=== PATIENT | female | born 1950 | race Caucasian/White ===

== ENCOUNTER → 2018-11-29 | Outpatient (CLI) | payer BC ==
[~2018-11-29] MED LIST: REGADENOSON 0.4 MG/5 ML DISP.SYRIN. IV ONE
--- NOTE | 2018-11-29 11:15 | PCVCIMAG ---
APPROVED REPORT Study performed: 11/29/2018 09:01:13 EXAM: Comprehensive 2D, Doppler, and color-flow Echocardiogram Patient Location: Echo lab Status: routine BSA: 2.02 HR: 56 bpmBP: 144/82 mmHg Rhythm: Bradycardia Risk Factors: Cardiac Risk Factors: HTN Indications Abnormal ECG Diabetes Fatigue 2D Dimensions IVSd: 15.18 (7-11mm) LVDd: 40.32 mm PWd: 13.45 (7-11mm)Ascending Ao: 34.02 (22-36mm) LVDs: 27.40 (25-40mm) Left Atrium: 39.78 (27-40mm) Aortic Root: 31.66 mm LV Single Plane 4CH: 54.17 % LV Single Plane 2CH: 51.58 % Biplane EF: 54.6 % Volumes Left Atrial Volume (Systole) Single Plane 4CH: 69.13 mLSingle Plane 2CH: 66.05 mL LA ESV Index: 34.00 mL/m2 Aortic Valve AoV Peak Malik.: 1.48 m/s AO Peak Gr.: 8.76 mmHgLVOT Max P.14 mmHg LVOT Max V: 1.13 m/s Mitral Valve E/A Ratio: 0.8 MV Decel. Time: 245.85 ms MV E Max Malik.: 0.64 m/s MV A Malik.: 0.84 m/s IVRT: 145.33 ms Pulmonary Valve PV Peak Malik.: 0.96 m/sPV Peak Gr.: 3.72 mmHg Pulmonary Vein P Vein S: 0.36 m/sP Vein A: 0.33 m/s P Vein D: 0.45 m/sP Vein A Dur.: 148.8 msec P Vein S/D Ratio: 0.80 Left Ventricle The left ventricle is normal size. There is normal LV segmental wall motion. Mild to moderate concentric left ventricular hypertrophy. Left ventricular systolic function is normal. The left ventricular ejection fraction is within the normal range. LVEF is >55%. Grade I - abnormal relaxation pattern. Right Ventricle The right ventricle is normal size. The right ventricular systolic function is normal. Atria Left atrium is at the upper limits of normal. The right atrium size is normal. Aortic Valve The aortic valve is normal in structure. No aortic regurgitation is present. There is no aortic valvular stenosis. Mitral Valve The mitral valve is normal in structure. There is no mitral valve regurgitation noted. No evidence of mitral valve stenosis. Tricuspid Valve The tricuspid valve is normal in structure. There is no tricuspid valve regurgitation noted. Unable to assess PA pressure. Pulmonic Valve The pulmonary valve is normal in structure. Mild pulmonic regurgitation. Great Vessels The aortic root is normal in size. IVC is normal in size and collapses >50% with inspiration. Pericardium There is no pericardial effusion. There is no pleural effusion. <Conclusion> The left ventricle is normal size. LVEF is >55%. Left atrium is at the upper limits of normal. The aortic valve is normal in structure. The mitral valve is normal in structure. The tricuspid valve is normal in structure. The pulmonary valve is normal in structure. Mild pulmonic regurgitation. There is no pericardial effusion.
--- NOTE | 2018-12-01 12:25 | PCVCIMAG ---
APPROVED REPORT Imaging Protocol: Rest Tc-99m/Stress Tc-99m 1 day Study performed: 11/29/2018 09:37:45 Indication: Abnormal EKG, Fatigue Patient Location: Out-Patient Stress Nurse: Sujey Cox RN, Romelia Betancur RN [place] Tech:Stormy Maurice [facility] Ht: 5 ft 9 in Wt: 190 lbs BSA: 2.02 m2 HR: 58 bpm BP: 194/79 mmHg BMI: 28.05 Rhythm: Sinus Bradycardia Medical History Medical History: HTN, Hyperlipidemia, Diabetes Medications: Amlodipine, Atorvastatin, Benazepril, HCTZ, Metformin Allergies: No known drug allergies Cardiac Risk Factors: Age Pretest Chest Pain Characteristics: No chest pain Exercise History: Sedentary Resting Data Rest SPECT myocardial perfusion imaging was performed in supine position 45 minutes following the intravenous injection of 9.9 mCi of Tc-99m Sestamibi. Time of rest injection: 944 Date: 11/29/2018 Administration Route: IV Administration Site: Right AC Pharmacologic Stress Pharmacologic stress test was performed by injecting Regadenoson 0.4 mg IV push over 10-15 seconds immediately followed by the intravenous injection of 34.7 mCi of Tc-99m Sestamibi. Time of stress injection: 11.1 Date: 11/29/2018 Administration Route: IV Administration Site: Right AC Gated Stress SPECT was performed 45 minutes after stress injection. The images were gated to evaluate regional wall motion and calculate left ventricular ejection fraction. Stress Test Details Stress Test: Pharmacologic stress was paired with low level exercise. Reason for pharmacologic stress test: physical limitation. HRMax Heart Rate (APMHR): 151 bpm Resting HR: 58 bpmTarget HR (85% APMHR): 128 bpm Max HR Achieved: 80 bpm % of APMHR: 52 Recovery HR: 73 bpm BP Resting BP: 194/79 mmHg Max BP: 190/80 mmHg Recovery BP: 175/85 mmHg ECG Resting ECG: Sinus Bradycardia Stress ECG: Sinus Rhythm Arrhythmia: None Recovery ECG: Sinus Rhythm Clinical Reason for Termination: Completed protocol Stress Symptoms: Nausea, Leg Fatigue Exercise duration: 4 min 00 sec Symptoms resolved with caffeine. Stress ECG Conclusion 1. Adequate response to intravenous Lexiscan 2. Inadequate heart rate for ECG diagnosis Study Data Post stress, the left ventricular ejection was 73%.. SSS: 7 SRS: 11 SDS: 2 TID = 1.07. Perfusion There is a medium area of moderately reduced uptake in the entire segment of the inferior wall which is seen on the stress images as well as the resting images. This area thickens and moves normally and is most consistent with attenuation artifact. Wall Motion Normal left ventricular wall motion. Nuclear Conclusion ECG Findings: non-diagnostic Clinical Findings: negative for ischemia Nuclear Findings: negative for ischemia Exercise Capacity: not assessed Left Ventricular Function: normal 1. Low risk study 2. Post stress left ventricular ejection fraction of 72% without wall motion abnormalities <Conclusion> 1. Adequate response to intravenous Lexiscan 2. Inadequate heart rate for ECG diagnosis
== END | disposition home or self-care (01) ==
LOC: PCVCIMAG 08:59
PROVIDERS: ATTEND Internal Medicine
DX: I37.1 Nonrheumatic pulmonary valve insufficiency (principal); R94.31 Abnormal electrocardiogram [ECG] [EKG]; E11.9 Type 2 diabetes mellitus without complications; R53.83 Other fatigue; I10 Essential (primary) hypertension; E78.5 Hyperlipidemia, unspecified
CPT/HCPCS: 78452; 93017; 93306; A9500; J2785